=== PATIENT | female | born 1980 | race Caucasian/White ===

== ENCOUNTER 2021-10-29 15:38 | Emergency (ER) | payer OTHER, SELFPAY ==
--- NOTE | ~2021-10-29 | CT_ITS ---
EXAMINATION: CT abdomen pelvis w con EXAM DATE: 10/29/2021 17:19 INDICATION: Abdominal pain TECHNIQUE: Spiral CT of the abdomen and pelvis was performed following intravenous injection of 100 m L Omnipaque 350. Axial, coronal and sagittal images of the abdomen and pelvis were reviewed. The do se-length product (DLP) for this examination was 1541.32 mGy-cm. The exposure was tailored according to patient size (auto mA exposure control), and iterative reconstruction (ASIR) was used as addition al dose reduction technique. There is no prior study for comparison. FINDINGS: There is hepatic steatosis without suspicious focal lesion identified. Spleen, adrenal glan ds, pancreas are unremarkable. There are cholecystectomy clips. Portal and splenic veins are patent . Kidneys enhance symmetrically. There is no hydronephrosis. There is IUD which appears to be iraj trally located within the endometrium, expected position. The bladder is unremarkable. There is no retroperitoneal or pelvic lymphadenopathy. The appendix is normal. The stomach and small bowel are unremarkable. There is small duodenal divert iculum. There is expected amount of colonic stool. No free intraperitoneal gas. The heart is norm al in size. There are no pericardial or pleural effusions. The lung bases are unremarkable. There are bony degenerative changes. No osteoblastic or osteolytic lesions identified. IMPRESSION: 1. No acute intra-abdominal findings. 2. Small duodenal diverticulum. Reviewed, dictated and finalized at location G.
--- NOTE | ~2021-10-29 | US_ITS ---
EXAMINATION: US pelvic complete w TV EXAM DATE: 10/29/2021 19:23 INDICATION: Right-sided pelvic pain. Clinical concern for ovarian torsion. TECHNIQUE: Pelvic transabdominal and transvaginal sonogram was performed. There are multiple graysca le and Doppler images available for interpretation. Correlation is made to CT scan earlier same date. FINDINGS: Uterus measures 9.1 x 4.1 x 5.4 cm, with IUD centrally located inside the endometrial cavi ty. Endometrial stripe measures 5 mm, within normal limits. There are nabothian cysts. There is no free pelvic fluid. Right adnexa: The ovary measures 4.2 x 2.4 x 2.0 cm and is morphologically normal. Ovarian vascular f low confirmed. Left adnexa: The ovary measures 3.6 x 1.8 x 1.7 cm and is morphologically normal. Ovarian vascular fl ow confirmed. IMPRESSION: 1. Ovarian Doppler flow confirmed. No acute findings. 2. IUD in position. Reviewed, dictated and finalized at location G.
[2021-10-29 15:40] VITALS: BP 134/83; PULSE 94; RESP 16; TEMP 36.4; O2SAT 100
--- NOTE | 2021-10-29 15:56 | ED.ABDPAIN ---
HPI - Abdominal Pain General Chief Complaint: Abdominal Pain Stated Complaint: abdominal pain Time Seen by Provider: 10/29/21 15:41 Source: patient Mode of arrival: ambulatory Limitations: no limitations History of Present Illness HPI narrative: 40-year-old female with history of cholecystectomy comes in today with complaints of her lower quadrant pain that started about 2 hours ago. Patient currently with nausea but denies vomiting, fever, chills, diarrhea, constipation. Patient denies chance of . Currently has an IUD in. Pain rated 6 out of a 10. Related Data Allergies Allergy/AdvReac Type Severity Reaction Status Date / Time No Known Allergies Allergy Verified 10/29/21 15:43 Review of Systems Review of Systems: CONSTITUTIONAL: Denies fever, chills, or sweats. EYES: Denies visual changes, redness, or discharge. ENT: Denies rhinorrhea, congestion, sore throat, or otalgia. CARDIOVASCULAR: Denies chest pain, palpitations, or edema. RESPIRATORY: Denies cough or dyspnea. GASTROINTESTINAL: Right lower quadrant pain with nausea. Denies vomiting, or diarrhea. GENITOURINARY: Denies dysuria or hematuria. SKIN: Denies rash or itching. MUSCULOSKELETAL: Denies back pain, joint pain, or myalgia. NEUROLOGIC: Denies headache, numbness, dizziness, or weakness. PSYCHIATRIC: Denies anxiety or depression. [facility] Surgical History Surgical History (Updated 10/29/21 @ 15:58 by Shelby Lee, ARCHANA) History of cholecystectomy Exam Narrative: GENERAL: Well-appearing, well-nourished, and in no acute distress. HEAD: Normocephalic, atraumatic. EYES: PERRLA and EOMI. ENT: Nares clear, no rhinorrhea or epistaxis. Mucous membranes moist. Oropharynx without tonsillar hypertrophy exudate or other lesions. Bilateral TMs pearly barrera nonbulging NECK: Supple. No adenopathy or masses. No carotid bruits or JVD CHEST: Clear to auscultation. No respiratory distress. No wheezes rales or rhonchi HEART: Regular rate and rhythm. No murmur heard. Normal peripheral pulses. ABDOMEN: Right lower quadrant tenderness. Positive McBurney sign. Soft with normal active bowel sounds. EXTREMITIES: Normal range of motion. No edema. SKIN: Warm, dry, no rash. NEURO: No focal deficits. Alert and oriented x3. PSYCH: Normal mood and affect. Course Reevaluation(s) Reevaluation #1: All results reviewed with patient. Patient aware blood sugar 273. Patient also aware hemoglobin A1c is 11.2. Long conversation with patient had about diabetes. CT negative for acute findings. Ultrasound to rule out torsion ordered. Patient still with pain rating a 6 out of a 10 no change after morphine. Date: 10/29/21 Time: 18:09 Consultations Consultation #1: Dr. Quiroga consulted. Tyron is new diabetic. BS currently 273 with HGB A1C of 11.2. Get sugar below 250 and can discharge on Metformin 500 PO BID. He will see in the office next week. Date: 10/29/21 Time: 18:29 Vital Signs Vital signs: Vital Signs Temperature 36.4 C 10/29/21 15:40 Pulse Rate 94 10/29/21 15:40 Respiratory Rate 16 10/29/21 15:40 Blood Pressure 134/83 10/29/21 15:40 Pulse Oximetry 100 10/29/21 15:40 Temperature 36.4 C 10/29/21 15:40 Pulse Rate 86 10/29/21 20:02 Respiratory Rate 16 10/29/21 20:02 Blood Pressure 108/62 10/29/21 20:02 Pulse Oximetry 100 10/29/21 20:02 MDM - Abdominal Pain Differential Diagnosis Differential diagnosis: Likely abdominal pain, acute appendicitis, calculus of kidney and constipation Lab Data Result diagrams: 10/29/21 15:53 10/29/21 15:53 Labs: Lab Results 10/29/21 10/29/21 10/29/21 Range/Units 15:53 15:53 15:53 WBC 9.4 (4.5-10.0) K/mm3 RBC 5.45 H (4.2-5.4) M/mm3 Hgb 15.3 H (12.0-15.0) g/dL Hct 45.6 (37.0-47.0) % MCV 83.7 (80-100) fl MCH 28.1 (26-34) pg MCHC 33.6 (32-36) g/dl RDW 12.9 (11.5-14.5) % Plt Count 257 (150-375) k/mm3 MPV 10.2 (7
[2021-10-29 15:58] LABS: Basophils Percent Auto 0.3 % (0.2-1.2); Eosinophils Absolute Auto 0.1 K/mm3 (0-0.3); Eosinophils Percent Auto 1.5 % (0-4.4); Hematocrit 45.6 % (37.0-47.0); Hemoglobin 15.3 g/dL (12.0-15.0); Immature Granulocyte Absolute 0.03 K/mm3 (0.00-0.031); Immature Granulocyte Percent A 0.3 % (0-0.5); Lymphocytes Absolute Auto 3.81 K/mm3 (0.9-3.2); Lymphocytes Percent Auto 40.7 % (18.3-44.2); Mean Corpuscular HGB Conc 33.6 g/dl (32-36); Mean Corpuscular Hemoglobin 28.1 pg (26-34); Mean Corpuscular Volume 83.7 fl (80-100); Mean Platelet Volume 10.2 fl (7.4-10.4); Monocytes Absolute Auto 0.5 K/mm3 (0.1-0.6); Monocytes Percent Auto 5.4 % (2.6-8.5); Neutrophils Absolute Auto 4.8 K/mm3 (1.3-6.7); Neutrophils Percent Auto 51.8 % (45.5-73.1); Platelet Count Result 257 k/mm3 (150-375); Red Blood Count 5.45 M/mm3 (4.2-5.4); Red Cell Distribution Width 12.9 % (11.5-14.5); White Blood Count 9.4 K/mm3 (4.5-10.0)
[2021-10-29] MEDS: ONDANSETRON INJ 4 MG/2 ML VIAL IV PUSH ×2 (15:58→19:41)
[2021-10-29] MEDS: SODIUM CHLORIDE 0.9% IV 1,000 ML 999 ML IV CONT ×2 (15:58→18:59)
[2021-10-29] MEDS: MORPHINE SULFATE (*CRX) 2 MG/ML INJ IV PUSH (16:02)
[2021-10-29 16:29] LABS: Alanine Aminotransferase 42 U/L (4-35); Albumin Level 4.6 g/dL (3.5-5.1); Alkaline Phosphatase 103 U/L (38-126); Anion Gap 11 mmol/L (8-16); Aspartate Amino Transferase 40 U/L (14-36); Bilirubin,Total 0.7 mg/dL (0.2-1.3); Blood Urea Nitrogen 9 mg/dL (7-17); Calcium 8.8 mg/dL (8.4-10.2); Carbon Dioxide 23 mmol/L (22-30); Chloride 100 mmol/L (98-107); Estimated CRCL calculation 168 ml/min; Estimated Glomerular Filt Rate > 60; Glucose 273 mg/dL (65-110); Potassium 4.4 mmol/L (3.4-5.0); Sodium 134 mmol/L (137-145)
[2021-10-29 16:50] VITALS: BP 113/57; PULSE 76; RESP 19; O2SAT 98
[2021-10-29 17:27] LABS: Hemoglobin A1C 11.2 % (<5.7)
[2021-10-29 17:44] LABS: Lipase 80 U/L (23-300)
[2021-10-29 18:06] LABS: Add Urine Microscopic? YES; Appearance Urine Clear (Clear); Bilirubin Urine Negative (Negative); Blood Urine Negative (Negative); Color Urine Straw (Yellow); Glucose Urine UA 3+ mg/dL (Negative); Ketones Urine 2+ mg/dL (Negative); Leukocyte Esterase Ur Negative LEU/UL (Negative); Mucus Urine Rare /lpf; Nitrate Urine Negative (Negative); Protein Urine Negative (Negative); RBC Urine 0-2 /hpf (0-2); Squamous Epithelial Cell Urine Few /hpf (Few); Urobilinogen Urine Negative mg/dL (<2.0); WBC Urine 0-3 /hpf
[2021-10-29 18:13] LABS: Specific Grav Ur 1.056 (1.001-1.035)
[2021-10-29 18:31] LABS: Glucose Point of Care 251 mg/dl (65-105)
[2021-10-29] MEDS: fentaNYL CITRATE INJ (*CRX) 100 MCG/2 ML VIAL 50 MCG IV PUSH (18:58)
[2021-10-29] MEDS: INSULIN HUMAN REGULAR (*BKC) 100 UNITS/ML IV PUSH (18:59)
--- NOTE | 2021-10-29 19:04 | PC.NURSE ---
Pt to ultrasound
[2021-10-29 19:23] VITALS: O2SAT 97
[2021-10-29 19:26] LABS: Glucose Point of Care 202 mg/dl (65-105)
[2021-10-29 19:30] VITALS: O2SAT 97
--- NOTE | 2021-10-29 19:33 | PC.NURSE ---
CÉSAR Quarles made aware of pts BS of 202. Pt c/o nausea. Made aware see MAR
[2021-10-29 19:45] VITALS: O2SAT 98
[2021-10-29 20:02] VITALS: BP 108/62; PULSE 86; RESP 16; O2SAT 100
== END 2021-10-29 20:20 | disposition home or self-care (01) ==
PROVIDERS: Emergency Provider Nurse Practitioner Family
DX: E11.65 Type 2 diabetes mellitus with hyperglycemia (principal); K76.0 Fatty (change of) liver, not elsewhere classified; Z97.5 Presence of (intrauterine) contraceptive device
CPT/HCPCS: 36415; 74177; 76830; 76856; 80053; 81001; 81025; 82948; 83036; 83690; 85025; 96361; 96374; 96375; 96376; 99284; J1815; J2270; J2405; J3010; J7030; Q9967

== ENCOUNTER 2022-09-04 15:07 | Emergency (ER) | payer OTHER, SELFPAY ==
[2022-09-04 15:12] VITALS: BP 113/67; PULSE 105; RESP 16; TEMP 36.1; O2SAT 98
--- NOTE | 2022-09-04 15:20 | ED.URI ---
HPI - URI/Sore Throat General Chief Complaint: Upper Respiratory Infection Stated Complaint: sore throat/cough/sob/chest congestion Time Seen by Provider: 09/04/22 15:22 Source: patient, RN notes reviewed and old records reviewed Mode of arrival: ambulatory Limitations: no limitations History of Present Illness HPI Narrative: 41-year-old female presents to the [facility] with complaints of a sore throat, cough, chest congestion and sinus congestion for 3 days. Has tried multiple [id number] products with minimal relief. Onset (ago): day(s) (3) Related Data Home Medications Medication Instructions Recorded Confirmed buspirone 15 mg tablet 15 mg PO DAILY 09/04/22 09/04/22 dulaglutide 0.75 mg/0.5 mL 0.75 mg subcut WEEKLY 09/04/22 09/04/22 subcutaneous pen injector (Trulicity) glimepiride 1 mg tablet (Amaryl) 1 mg PO DAILY 09/04/22 09/04/22 metformin 1,000 mg tablet 1,000 mg PO BID 09/04/22 09/04/22 simvastatin 10 mg tablet 10 mg PO DAILY 09/04/22 09/04/22 Allergies Allergy/AdvReac Type Severity Reaction Status Date / Time No Known Allergies Allergy Verified 09/04/22 15:12 Review of Systems Review of Systems: All systems reviewed & are unremarkable except as noted in HPI and below Constitutional: Constitutional: Reports no additional constitutional complaints Eyes: Eyes: Reports no additional eye complaints ENT: Reports as per HPI, Reports nasal congestion and Reports sore throat Cardiovascular: Cardiovascular: Reports no additional cardiovascular complaints, Denies chest pain and Denies dyspnea Respiratory: Respiratory: Reports no additional respiratory complaints, Denies chest congestion, Denies cough and Denies dyspnea Gastrointestinal: Gastrointestinal: Reports no additional gastrointestinal complaints, Denies abdominal pain, Denies nausea and Denies vomiting Musculoskeletal: Musculoskeletal: Reports no additional musculoskeletal complaints Integumentary/Breasts: Skin/Breast: Reports system reviewed and no additional complaints, except as docu Neurologic: Reports system reviewed and no additional complaints, except as documented Psychiatric: Psychiatric: Reports no additional psychiatric complaints Allergic/Immunologic: Allergic/Immunologic: Reports no additional allergic/immunologic complaints PMFSH Surgical History Surgical History History of cholecystectomy Comments At the time of my signature, I reviewed and agree with the nursing past medical, surgical, social, and family history. There is no relevant family history pertinent to the patient complaint. Exam Const: General: cooperative, healthy appearing, comfortable, no acute distress, well developed, alert and well nourished Nutritional Appearance: well nourished Orientation/consciousness: patient oriented x3 Limitations: no limitations HENMT: Head: normal to inspection Ears: hearing grossly normal bilaterally and external ears normal Face/Nose/Sinus: Normal external nose present, Normal nares present, Normal nasal mucous membranes and turbinates present and normal facial exam Face and sinus: normal facial exam Mouth: Yes Normal oral and palatal mucosa present, Yes lip normal and Yes moist mucous membranes Throat: posterior oropharynx normal and uvula midline Eyes: General: appearance normal, both eyes and all related structures Alignment and Position: alignment normal Periorbital: periorbital findings normal Conjunctivae: conjunctivae normal Pupils: Equal, round and reactive pupils present EOM: EOMs intact bilaterally Neck: Neck: normal visual inspection, full ROM, no lymphadenopathy and no meningeal signs Chest: Chest palpation & inspection: normal inspection of the chest Resp: Effort & Inspection: normal respiratory effort and able to speak in complete sentences Auscultation: clear to auscultation bilaterally, no crackles, no rales, no rhonchi and no wheezes Cardio: R
== END 2022-09-04 15:49 | disposition home or self-care (01) ==
PROVIDERS: Emergency Provider Nurse Practitioner; PCP Nurse Practitioner
DX: J02.0 Streptococcal pharyngitis (principal)
CPT/HCPCS: 87880; 99213; G0463

== ENCOUNTER 2022-09-22 11:38 | Emergency (ER) | payer OTHER, SELFPAY ==
[2022-09-22 11:40] VITALS: BP 132/73; PULSE 68; RESP 18; TEMP 36.5; O2SAT 100
--- NOTE | 2022-09-22 12:26 | ED.URI ---
HPI - URI/Sore Throat General Chief Complaint: Upper Respiratory Infection Stated Complaint: sore throat Time Seen by Provider: 09/22/22 12:16 Source: patient Mode of arrival: ambulatory Limitations: no limitations History of Present Illness HPI Narrative: Patient presents today complaining of a sore throat since yesterday. She was diagnosed with strep throat and finished a course of antibiotics a week ago. She currently rates her pain 5/10 and has been taking ibuprofen without relief. History of diabetes. Denies history of shortness of breath or difficulty swallowing. Related Data Home Medications Medication Instructions Recorded Confirmed buspirone 15 mg tablet 15 mg PO DAILY 09/04/22 09/22/22 dulaglutide 0.75 mg/0.5 mL 0.75 mg subcut WEEKLY 09/04/22 09/22/22 subcutaneous pen injector (Trulicity) glimepiride 1 mg tablet (Amaryl) 1 mg PO DAILY 09/04/22 09/22/22 metformin 1,000 mg tablet 1,000 mg PO BID 09/04/22 09/22/22 simvastatin 10 mg tablet 10 mg PO DAILY 09/04/22 09/22/22 Allergies Allergy/AdvReac Type Severity Reaction Status Date / Time No Known Allergies Allergy Verified 09/22/22 11:43 Review of Systems Review of Systems: CONSTITUTIONAL: Denies body aches, fever, chills, or sweats. EYES: Denies visual changes, redness, or discharge. ENT: Denies rhinorrhea, congestion, or otalgia.+ sore throat CARDIOVASCULAR: Denies chest pain, palpitations, or edema. RESPIRATORY: Denies cough or dyspnea. GASTROINTESTINAL: Denies abdominal pain, nausea, vomiting, or diarrhea. GENITOURINARY: Denies dysuria or hematuria. SKIN: Denies rash, itching, or wounds. MUSCULOSKELETAL: Denies back pain, joint pain, or myalgia. NEUROLOGIC: Denies headache, numbness, tingling, or weakness. PSYCH: Denies depression or anxiety. [facility] Past Medical History Medical History (Updated 09/22/22 @ 12:30 by Cecily Ann, RYAN, BC) Diabetes Surgical History Surgical History History of cholecystectomy Comments At time of signature, I have reviewed and agree with nursing past medical, surgical, social and family history unless otherwise noted. Please see nursing chart for further information. There is no relevant family history pertinent to the presenting complaint Exam Narrative: GENERAL: Well-appearing, well-nourished, and in no acute distress. HEAD: Normocephalic, atraumatic. EYES: EOMI. No redness or drainage. Conjunctivae normal. ENT: Mucous membranes pink and moist. Nares clear. No rhinorrhea. TMs normal bilaterally. Throat mildly erythematous without edema or exudate. Uvula midline. NECK: Normal AROM. Supple. No lymphadenopathy. CHEST: No respiratory distress. Clear to auscultation. HEART: Regular rate and rhythm. No murmur appreciated. Normal peripheral pulses. EXTREMITIES: Normal range of motion. No edema. SKIN: Warm, dry, no rash. Capillary refill normal. Normal skin turgor. NEURO: No focal deficits. Alert and oriented x3. Gait steady. PSYCH: Normal affect. No signs of depression or anxiety. Course Course Level of Care: Express Care Visit Vital Signs Vital signs: Vital Signs Temperature 97.7 F 09/22/22 11:40 Pulse Rate 68 09/22/22 11:40 Respiratory Rate 18 09/22/22 11:40 Blood Pressure 132/73 09/22/22 11:40 Pulse Oximetry 100 09/22/22 11:40 Oxygen Delivery Room Air 09/22/22 11:40 Temperature 97.7 F 09/22/22 11:40 Pulse Rate 68 09/22/22 11:40 Respiratory Rate 18 09/22/22 11:40 Blood Pressure 132/73 09/22/22 11:40 Pulse Oximetry 100 09/22/22 11:40 Oxygen Delivery Room Air 09/22/22 11:40 Reviewed. Pt has been instructed to follow up with her PCP regarding her elevated blood pressure today. MDM - URI/Sore Throat MDM Narrative Medical decision making narrative: Tests are all negative. Symptoms likely viral. Anticipatory guidance given. No prescriptions indicated at this time. Different
== END 2022-09-22 12:40 | disposition home or self-care (01) ==
PROVIDERS: Emergency Provider Nurse Practitioner
DX: J02.9 Acute pharyngitis, unspecified (principal); Z20.822 Contact with and (suspected) exposure to COVID-19; E11.9 Type 2 diabetes mellitus without complications; Z79.84 Long term (current) use of oral hypoglycemic drugs
CPT/HCPCS: 87081; 87426; 87804; 87880; 99213; C9803; G0463

== ENCOUNTER 2023-08-26 15:04 | Emergency (ER) | payer OTHER, SELFPAY ==
--- NOTE | 2023-08-26 15:11 | ED.URI ---
HPI - URI/Sore Throat General Chief Complaint: Upper Respiratory Infection Stated Complaint: sorethroat,rt ear pain Time Seen by Provider: 08/26/23 15:11 Source: patient Mode of arrival: ambulatory Limitations: no limitations History of Present Illness HPI Narrative: Patient is a 42-year-old female who presents with right ear pain and sore throat that started today. If patient has not taken anything for symptoms. Patient denies any fever, chills, congestion, cough, nausea, vomiting, diarrhea. Reports son had strep throat last week. Related Data Home Medications Medication Instructions Recorded Confirmed buspirone 15 mg tablet 15 mg PO DAILY 09/04/22 08/26/23 dulaglutide 0.75 mg/0.5 mL 0.75 mg subcut WEEKLY 09/04/22 08/26/23 subcutaneous pen injector (Trulicity) glimepiride 1 mg tablet (Amaryl) 1 mg PO DAILY 09/04/22 08/26/23 metformin 1,000 mg tablet 1,000 mg PO BID 09/04/22 08/26/23 simvastatin 10 mg tablet 10 mg PO DAILY 09/04/22 08/26/23 cholecalciferol (vitamin D3) 25 25 mcg PO DAILY 08/26/23 08/26/23 mcg (1,000 unit) tablet levonorgestrel 21 mcg/24 hours (8 1 device intrauterine ONCE 08/26/23 08/26/23 yrs) 52 mg intrauterine device (Mirena) multivitamin with minerals-folic 1 tablet PO DIRECTED 08/26/23 08/26/23 acid 0.4 mg tablet Allergies Allergy/AdvReac Type Severity Reaction Status Date / Time No Known Allergies Allergy Verified 08/26/23 15:14 Review of Systems Review of Systems: All systems reviewed & are unremarkable except as noted in HPI and below Constitutional: Constitutional: Denies body ache(s), Denies chills, Denies fatigue, Denies fever(s), Denies headache(s), Denies malaise and Denies weakness Eyes: Eyes: Denies blurry vision, Denies itchy eyes and Denies loss of vision ENT: Reports otalgia, Denies headache(s), Denies nasal congestion, Denies sinus pain and Reports sore throat Cardiovascular: Cardiovascular: Denies chest pain, Denies irregular heart rhythm and Denies dyspnea Respiratory: Respiratory: Reports cough and Denies dyspnea Gastrointestinal: Gastrointestinal: Denies abdominal pain, Denies diarrhea, Denies nausea and Denies vomiting Musculoskeletal: Musculoskeletal: Denies back pain, Denies myalgias and Denies arthralgias Integumentary/Breasts: Skin/Breast: Denies pruritus and Denies rash Neurologic: Denies headache(s), Denies loss of vision and Denies weakness Psychiatric: Psychiatric: Reports no additional psychiatric complaints Endocrine: Endocrine: Denies fatigue Allergic/Immunologic: Allergic/Immunologic: Denies itchy eyes PMFSH Past Medical History Medical History Diabetes Surgical History Surgical History History of cholecystectomy Comments At time of signature, agree with nursing past medical, surgical, social and family history. There is no relevant family history pertinent to the presenting complaint. Exam Const: General: cooperative, healthy appearing, comfortable, no acute distress and well nourished Nutritional Appearance: well nourished Orientation/consciousness: patient oriented x3 Limitations: no limitations HENMT: Head: normal to inspection, normocephalic and atraumatic Ears: hearing grossly normal bilaterally, external ears normal, TM normal on the left, EAC's normal, no periauricular adenopathy and TM abnormal wth effusion serous on the right Face/Nose/Sinus: Normal external nose present, Normal nasal mucous membranes and turbinates present, normal facial exam, sinuses nontender and face symmetric Face and sinus: normal facial exam, sinuses nontender and face symmetric Mouth: Yes Normal oral and palatal mucosa present, Yes lip normal, Yes tongue normal, Yes Normal salivary glands and ducts present, Yes oropharynx normal and Yes moist mucous membranes Teeth and gingiva: dentition normal Throat: tonsils normal, uvula mi
[2023-08-26 15:14] VITALS: BP 109/65; PULSE 82; RESP 18; TEMP 36.4; O2SAT 98
[2023-08-26 15:15] VITALS: BP 109/65; PULSE 82; RESP 18; TEMP 36.4; O2SAT 98
== END 2023-08-26 15:33 | disposition home or self-care (01) ==
PROVIDERS: Emergency Provider Nurse Practitioner Family; PCP Nurse Practitioner
DX: H65.01 Acute serous otitis media, right ear (principal); J02.9 Acute pharyngitis, unspecified; E11.9 Type 2 diabetes mellitus without complications
CPT/HCPCS: 87081; 87880; 99213; G0463

== ENCOUNTER 2024-01-09 08:03 | Emergency (ER) | payer OTHER, SELFPAY ==
--- NOTE | 2024-01-09 08:22 | ED.URI ---
HPI - URI/Sore Throat General Chief Complaint: Upper Respiratory Infection Stated Complaint: sorethroat,cough,bilateral ear pain Time Seen by Provider: 01/09/24 08:22 Source: patient Mode of arrival: ambulatory Limitations: no limitations History of Present Illness HPI Narrative: Patient is a 43-year-old female who presents with 3 days of sore throat cough and ear fullness. Patient has not taken anything for symptoms. Patient denies any fever, chills, nausea, vomiting, diarrhea. Son has similar symptoms. Related Data Home Medications Medication Instructions Recorded Confirmed buspirone 15 mg tablet 15 mg PO DAILY 09/04/22 01/09/24 cholecalciferol (vitamin D3) 25 25 mcg PO DAILY 08/26/23 01/09/24 mcg (1,000 unit) tablet levonorgestrel 21 mcg/24 hr (up to 1 device intrauterine ONCE 08/26/23 01/09/24 8 years) 52 mg intrauterine device (Mirena) multivitamin with minerals-folic 1 tablet PO DIRECTED 08/26/23 01/09/24 acid 0.4 mg tablet Allergies Allergy/AdvReac Type Severity Reaction Status Date / Time No Known Allergies Allergy Verified 01/09/24 08:26 Review of Systems Review of Systems: All systems reviewed & are unremarkable except as noted in HPI and below Constitutional: Constitutional: Denies body ache(s), Denies chills, Denies fatigue, Denies fever(s), Denies headache(s), Denies malaise and Denies weakness Eyes: Eyes: Denies blurry vision, Denies itchy eyes and Denies loss of vision ENT: Reports otalgia, Denies headache(s), Reports nasal congestion, Denies sinus pain and Reports sore throat Cardiovascular: Cardiovascular: Denies chest pain, Denies irregular heart rhythm and Denies dyspnea Respiratory: Respiratory: Reports cough and Denies dyspnea Gastrointestinal: Gastrointestinal: Denies abdominal pain, Denies diarrhea, Denies nausea and Denies vomiting Musculoskeletal: Musculoskeletal: Denies back pain, Denies myalgias and Denies arthralgias Integumentary/Breasts: Skin/Breast: Denies pruritus and Denies rash Neurologic: Denies headache(s), Denies loss of vision and Denies weakness Psychiatric: Psychiatric: Reports no additional psychiatric complaints Endocrine: Endocrine: Denies fatigue Allergic/Immunologic: Allergic/Immunologic: Denies itchy eyes PMFSH Past Medical History Medical History Diabetes Surgical History Surgical History History of cholecystectomy Comments At time of signature, agree with nursing past medical, surgical, social and family history. There is no relevant family history pertinent to the presenting complaint. Exam Const: General: cooperative, healthy appearing, comfortable, no acute distress and well nourished Nutritional Appearance: well nourished Orientation/consciousness: patient oriented x3 Limitations: no limitations HENMT: Head: normal to inspection, normocephalic and atraumatic Ears: hearing grossly normal bilaterally, external ears normal, TM's normal bilaterally, EAC's normal and no periauricular adenopathy Face/Nose/Sinus: Normal external nose present, Abnormal mucous membranes and turbinates present erythematous bilateral and diffuse, normal facial exam, sinuses nontender and face symmetric Face and sinus: normal facial exam, sinuses nontender and face symmetric Mouth: Yes Normal oral and palatal mucosa present, Yes lip normal, Yes tongue normal, Yes Normal salivary glands and ducts present, Yes oropharynx normal and Yes moist mucous membranes Teeth and gingiva: dentition normal Throat: posterior oropharynx normal, tonsils normal and uvula midline Eyes: General: appearance normal, both eyes and all related structures Alignment and Position: alignment normal and position normal Periorbital: periorbital findings normal Eyelids: eyelids normal Pupils: Equal, round and reactive pupils present Neck: Neck: normal visual inspection, f
[2024-01-09 08:46] VITALS: BP 101/61; PULSE 71; RESP 16; TEMP 35.9; O2SAT 98
== END 2024-01-09 09:16 | disposition home or self-care (01) ==
PROVIDERS: Emergency Provider Nurse Practitioner Family; PCP Nurse Practitioner
DX: J06.9 Acute upper respiratory infection, unspecified (principal); E11.9 Type 2 diabetes mellitus without complications
CPT/HCPCS: 87081; 87880; 99213; G0463

== ENCOUNTER 2024-02-06 12:46 | Emergency (ER) | payer OTHER, SELFPAY ==
[2024-02-06 13:00] VITALS: BP 96/58; PULSE 71; RESP 18; TEMP 36.5; O2SAT 98
--- NOTE | 2024-02-06 13:35 | ED.EYEPROB ---
HPI - Eye Problem General Chief complaint: Eye Problems Stated complaint: Eye Infection Time Seen by Provider: 02/06/24 13:14 Source: patient, family, RN notes reviewed and old records reviewed Mode of arrival: ambulatory Limitations: no limitations History of Present Illness HPI Narrative: 43 year old female presents to express care with complaints of right eye redness since Sunday with drainage and feelings of irritation. Patient reports that initially she had some irritation under her right eye lid and some mild swelling and she called her eye doctor and was told to apply warm compresses which she did. Since then she has been having crusting and has noted some mucoid drainage from her right eye. chief complaint: eye redness and other (mucoid drainage) Onset (ago): day(s) (2) Onset description: gradual Duration: progressively worsening Location: right eye Eye Symptoms: redness and discharge Severity: mild Treatments Prior to Arrival: other (warm compresses to right eye) Related Data Home Medications Medication Instructions Recorded Confirmed buspirone 15 mg tablet 15 mg PO DAILY 09/04/22 02/06/24 cholecalciferol (vitamin D3) 25 25 mcg PO DAILY 08/26/23 02/06/24 mcg (1,000 unit) tablet levonorgestrel 21 mcg/24 hr (up to 1 device intrauterine ONCE 08/26/23 02/06/24 8 years) 52 mg intrauterine device (Mirena) multivitamin with minerals-folic 1 tablet PO DIRECTED 08/26/23 02/06/24 acid 0.4 mg tablet Allergies Allergy/AdvReac Type Severity Reaction Status Date / Time No Known Allergies Allergy Verified 02/06/24 13:10 Review of Systems Review of Systems: CONSTITUTIONAL: Denies fever, chills, or sweats. EYES: Denies visual changes. Reports redness,, irritation, discharge to right eye. ENT: Denies rhinorrhea, congestion, sore throat, or otalgia. CARDIOVASCULAR: Denies chest pain, palpitations, or edema. RESPIRATORY: Denies cough or dyspnea. SKIN: Denies rash or itching. NEUROLOGIC: Denies headache All systems reviewed & are unremarkable except as noted in HPI and below PMFSH Past Medical History Medical History (Updated 02/07/24 @ 16:28 by Simona Trujillo NP) Anxiety and depression Bronchitis Diabetes GERD (gastroesophageal reflux disease) History of sinus problem Hyperlipidemia Surgical History Surgical History H/O gastric sleeve History of cholecystectomy Social History Social History (Updated 02/07/24 @ 16:23 by Simona Trujillo NP) Smoking status: Never smoker Alcohol intake: current Alcohol use details: rare social Substance use type: does not use Living arrangements: with family Gender identity (if verbalized by the patient): Female Comments At time of signature, agree with nursing past medical, surgical, social and family history. There is no relevant family history pertinent to the presenting complaint Exam Narrative: GENERAL: Well-appearing, well-nourished, and in no acute distress. HEAD: Normocephalic, atraumatic. EYES: PERRLA and EOMI. Upper and lower eyelids unremarkable. No periorbital cellulitis noted. Sclera and conjunctivae injected right eye with mucoid drainage ENT: Nares clear, no rhinorrhea or epistaxis. Mucous membranes moist. NECK: Supple. no lymphadenopathy CHEST: Clear to auscultation. No respiratory distress.SAO2 98% on room air HEART: Regular rate and rhythm. No murmur heard. Normal peripheral pulses. SKIN: Warm, dry, no rash. NEURO: No focal deficits. Alert and oriented x3. Course Course Emergency Course: Patient is aware of diagnosis, understands and agrees to treatment plan. Anticipatory guidance given. Patient agrees to follow-up as directed and is aware of reasons to seek care at the emergency department. Portions of this record may have been created with voice recognition software Level of Care: Express Care Visit Vital Signs Vital signs: Vital Signs Te
== END 2024-02-06 13:54 | disposition home or self-care (01) ==
PROVIDERS: Emergency Provider Registered Nurse; PCP Nurse Practitioner
DX: H10.9 Unspecified conjunctivitis (principal); E11.9 Type 2 diabetes mellitus without complications; K21.9 Gastro-esophageal reflux disease without esophagitis; E78.5 Hyperlipidemia, unspecified; Z98.84 Bariatric surgery status; F41.9 Anxiety disorder, unspecified; F32.A Depression, unspecified
CPT/HCPCS: 99213; G0463

== ENCOUNTER 2024-07-11 09:07 | Emergency (ER) | payer OTHER, SELFPAY ==
[2024-07-11 09:17] VITALS: BP 116/77; PULSE 79; RESP 20; TEMP 36.2; O2SAT 100
--- NOTE | 2024-07-11 09:53 | ED.URI ---
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 She reports that symptoms began yesterday, got much worse today. She denies any sore throat. Says she has not needed to take anything for her symptoms. She denies any runny nose. Denies fever, chills, sweats. Denies any injury or trauma. Voices no other concerns or complaints at this time. Related Data Home Medications Medication Instructions Recorded Confirmed buspirone 15 mg tablet 15 mg PO DAILY 09/04/22 07/11/24 cholecalciferol (vitamin D3) 25 25 mcg PO DAILY 08/26/23 07/11/24 mcg (1,000 unit) tablet levonorgestrel 21 mcg/24 hr (up to 1 device intrauterine ONCE 08/26/23 07/11/24 8 years) 52 mg intrauterine device (Mirena) multivitamin with minerals-folic 1 tablet PO DIRECTED 08/26/23 07/11/24 acid 0.4 mg tablet Allergies Allergy/AdvReac Type Severity Reaction Status Date / Time No Known Allergies Allergy Verified 07/11/24 09:16 Review of Systems Review of Systems: All systems reviewed & are unremarkable except as noted in HPI and below Constitutional: Constitutional: Reports no additional constitutional complaints ENT: Reports system reviewed and no additional complaints, except as documented, Reports as per HPI and Reports hoarseness Cardiovascular: Cardiovascular: Reports no additional cardiovascular complaints Respiratory: Respiratory: Reports no additional respiratory complaints Gastrointestinal: Gastrointestinal: Reports no additional gastrointestinal complaints [facility] Past Medical History Medical History (Updated 07/11/24 @ 10:22 by Ronda Orellana APRN) Anxiety and depression Bronchitis Diabetes GERD (gastroesophageal reflux disease) History of sinus problem Hyperlipidemia Surgical History Surgical History H/O gastric sleeve History of cholecystectomy Social History Social History Smoking status: Never smoker Alcohol intake: current Alcohol use details: rare social Substance use type: does not use Living arrangements: with family Gender identity (if verbalized by the patient): Female Comments At the time of my signature, I reviewed and agree with the nursing past medical, surgical, social, and family history. There is no relevant family history pertinent to the patient complaint. Exam Const: General: cooperative, no acute distress, alert and awake Orientation/consciousness: oriented to person, oriented to place and oriented to time HENMT: Head: normal to inspection Ears: TM's normal bilaterally Mouth: Yes moist mucous membranes Throat: posterior oropharynx normal Resp: Effort & Inspection: normal respiratory effort and able to speak in complete sentences Auscultation: clear to auscultation bilaterally, no crackles, no rales, no rhonchi and no wheezes Cardio: Palpation: normal PMI Rate: regular rate Rhythm: regular rhythm Heart sounds: S1 normal heart sound present and S2 normal heart sound present Neuro: General: oriented to person, oriented to place and oriented to time Cranial nerves: Yes CN's II-XII intact bilaterally Psych: Appearance: grossly normal Thought process: Normal thought process present Insight: Good insight present (Psych) Judgement: Good judgement present (Psych) Course Course Level of Care: Express Care Visit Vital Signs Vital signs: Vital Signs Temperature 97.2 F L 07/11/24 09:17 Pulse Rate 79 07/11/24 09:17 Respiratory Rate 20 07/11/24 09:17 Blood Pressure 116/77 07/11/24 09:17 Pulse Oximetry 100 07/11/24 09:17 Oxygen Delivery Room Air 07/11/24 09:17 Temperature 97.2 F L 07/11/24 09:17 Pulse Rate 79 07/11/24 09:17 Respiratory Rate 20 07/11/24 09:17 Blood Pressure 116/77 07/11/24 09:17 Pulse Oximetry 100 07/11/24 09:17 Oxygen Delivery Room Air 07/11/24 09:17 Reviewed MDM - URI/Sore Throat MDM Narrative Medical decision making narrative: Patient in no distress, history and exam consistent with laryngitis. Treat with steroid burst. Follow with primary care provider. Emergency department for new or worse symptoms. Discharge instructions reviewed with patient, as well as provided in writing per nursing staff. The instructions also include specific and strict return/GO TO THE ER as well as f/u information. All questions have been answered, and the patient deny any further questions with discharge and discharge plan. Some parts of this dictation were generated by voice recognition software and may contain typographical and/or grammatical inaccuracies. Differential Diagnosis Differential diagnosis: Likely upper respiratory infection, croup and viral infection Medical Records Attestation: I reviewed the patient's medical records. Discharge Plan Discharge Clinical Impression: Laryngitis Patient Disposition: Home, Self-Care Condition: Stable Instructions: Antibiotic Form, Upper Respiratory Infection (ED) Additional Instructions: Take medications as prescribed. Follow with primary care provider. Emergency department for new or worsening symptoms Patient Language: Malaysian Prescriptions: New prednisone 50 mg tablet 50 mg PO DAILY Qty: 5 0RF No Action Mirena 21 mcg/24 hours (8 yrs) 52 mg Intrauterine Device 1 device INTRAUTERINE ONCE Rx Instructions: as a single dose cholecalciferol (vitamin D3) 25 mcg (1,000 unit) Tablet 25 mcg PO DAILY multivit with min-folic acid [Adult One Daily Multivitamin] 0.4 mg Tablet 1 tablet PO DIRECTED buspirone 15 mg tablet 15 mg PO DAILY Follow-up/Referrals: Marilu,ARCHANA Daniel [Primary Care Provider] - 2 Weeks Stand Alone Forms: Work/School Release IP Time of Disposition: 10:22
[2024-07-11 10:27] LABS: EDSTREPNEGPOS1 Negative (Negative)
== END 2024-07-11 10:25 | disposition home or self-care (01) ==
PROVIDERS: Emergency Provider Nurse Practitioner Family; PCP Nurse Practitioner
DX: J04.0 Acute laryngitis (principal); E11.9 Type 2 diabetes mellitus without complications; E78.5 Hyperlipidemia, unspecified; K21.9 Gastro-esophageal reflux disease without esophagitis; Z98.84 Bariatric surgery status; F41.9 Anxiety disorder, unspecified; F32.A Depression, unspecified
CPT/HCPCS: 87081; 87880; 99213; G0463

== ENCOUNTER 2024-12-04 08:12 | Emergency (ER) | payer OTHER, SELFPAY ==
[2024-12-04 08:28] VITALS: BP 112/76; PULSE 100; RESP 18; TEMP 36.2; O2SAT 100
--- NOTE | 2024-12-04 08:46 | ED_ITS ---
HPI - URI/Sore Throat General Chief Complaint: Upper Respiratory Infection Stated Complaint: Sore Throat Time Seen by Provider: 12/04/24 08:15 Source: patient Mode of arrival: ambulatory Limitations: no limitations History of Present Illness HPI Narrative: Patient is a 44 year old female that presents with one week of n/v/d. States she had a fever 4 days ago that has since resolved. Was feeling better yesterday but then in the evening her throat started hurting, lymphnodes became swollen and tender. Patient denies any other URI symptoms including congestion, ear pain, cough. Has not taken anything for symptoms. Patient thought she had the FLU but became concerned with the lymphnode swelling. Related Data Home Medications ?Medication ?Instructions ?Recorded ?Confirmed ?Last Taken ?Type buspirone 15 mg tablet 15 mg PO DAILY 09/04/22 07/11/24 Unknown History cholecalciferol (vitamin D3) 25 25 mcg PO DAILY 08/26/23 07/11/24 Unknown His tory mcg (1,000 unit) tablet levonorgestrel (Mirena) 1 device intrauterine ONCE 08/26/23 07/11/24 Unknown History multivitamin with minerals-folic 1 tablet PO DIRECTED 08/26/23 07/11/24 U nknown History acid 0.4 mg tablet Allergies Allergy/AdvReac Type Severity Reaction Status Date / Time No Known Allergies Allergy Verified 12/04/24 08:33 Review of Systems Review of Systems: All systems reviewed & are unremarkable except as noted in HPI and below Constitutional: Constitutional: Denies chills, Denies fatigue, Denies fever(s), Denies headache(s), Denies malaise and Denies weakness Eyes: Eyes: Denies blurry vision, Denies itchy eyes and Denies loss of vision ENT: Denies otalgia, Denies headache(s), Denies nasal congestion, Reports neck pain (lymphnodes), Denies sinus pain and Reports sore throat Cardiovascular: Cardiovascular: Denies chest pain, Denies irregular heart rhythm and Denies dyspnea Respiratory: Respiratory: Denies cough and Denies dyspnea Gastrointestinal: Gastrointestinal: Denies abdominal pain, Reports diarrhea, Reports nausea and Reports vomiting Musculoskeletal: Musculoskeletal: Denies back pain, Denies myalgias and Denies arthralgias Integumentary/Breasts: Skin/Breast: Denies pruritus and Denies rash Neurologic: Denies headache(s), Denies loss of vision and Denies weakness Psychiatric: Psychiatric: Reports no additional psychiatric complaints Endocrine: Endocrine: Denies fatigue Allergic/Immunologic: Allergic/Immunologic: Denies itchy eyes PMFSH Past Medical History Medical History History of sinus problem GERD (gastroesophageal reflux disease) Bronchitis Hyperlipidemia Anxiety and depression Diabetes Surgical History Surgical History H/O gastric sleeve History of cholecystectomy Social History Social History Smoking status: Never smoker Alcohol intake: current Alcohol use details: rare social Substance use type: does not use Living arrangements: with family Gender identity (if verbalized by the patient): Female Comments At time of signature, agree with nursing past medical, surgical, social and family history. There is no relevant family history pertinent to the presenting complaint. Exam Const: General: cooperative, healthy appearing, comfortable, no acute distress and well nourished Nutritional Appearance: well nourished Orientation/co nsciousness: patient oriented x3 Limitations: no limitations HENMT: Head: normal to inspection, normocephalic and atraumatic Ears: hearing grossly normal bilaterally, external ears normal, TM's normal bilaterally, EAC's normal and no periauricular adenopathy Face/Nose/Sinus: Normal external nose present, Abnormal mucous membranes and turbinates present erythematous bilateral and diffuse, normal facial exam, sinuses nontender and face symmetric Face and sinus: normal facial exam, sinuses nontender and face symmetric Mouth: Yes Normal oral and palatal mucosa present, Yes lip normal, Yes tongue normal, Yes Normal salivary glands and ducts present, Yes oropharynx normal and Yes moist mucous membranes Teeth and gingiva: dentition normal Throat: posterior oropharynx normal, uvula midline and abnormal tonsil bilateral erythema and hypertrophy 2+ Eyes: General: appearance normal, both eyes and all related structures Alignment and Position: alignment normal and position normal Periorbital: periorbital findings normal Eyelids: eyelids normal Pupils: Equal, round and reactive pupils present Neck: Neck: normal visual inspection, full ROM, supple and lymphadenopathy bilateral submandibular hard, fixed and tender Chest: Chest palpation & inspection: normal inspection of the chest and normal palpation of entire chest wall Resp: Effort & Inspection: normal respiratory effort and able to speak in complete sentences Auscultation: clear to auscultation bilaterally, no crackles, no rales, no rhonchi and no wheezes Cardio: Rate: regular rate Rhythm: regular rhythm Heart sounds: S1 normal heart sound present and S2 normal heart sound present GI: Inspection: normal to inspection Skin: General skin exam: normal color and no rashes or lesions noted Neuro: General: patient oriented x3 and moves all extremities Cranial nerves: Yes Equal, round and reactive pupils present Speech: normal speech Gait exam (Neuro): Normal gait present Extrem: General: normal to inspection, full ROM and no edema Psych: Appearance: grossly normal and well kempt Mental Status: mental status grossly normal Speech and movement: Normal speech and movement present Affect: normal affect Attitude: cooperative Thought process: Normal thought process present Course Course Emergency Course: Discharge instructions reviewed with patient, as well as provided in writing per nursing staff. The instructions also include specific and strict return/GO TO THE ER as well as f/u information. All questions have been answered, and the patient deny any further questions with discharge and discharge plan. Portions of this record may have been created with voice recognition software Level of Care: Express Care Visit Vital Signs Vital signs: Reviewed MDM - URI/Sore Throat MDM Narrative Medical decision making narrative: Discussed taking OTC Imodium for continued diarrhea. Discussed alternating tylenol and ibuprofen and using warm compresses on lymphnodes for pain. Pt well hydrated appearing, in no respiratory distress, hemodynamically stable. Recommend supportive care. The patient is stable at time of discharge the clinical impression was discussed and the patient was given the opportunity to ask questions, which were addressed as completely as possible given the information available at present. Anticipatory guidance and return to care precautions were discussed and the importance of primary care follow-up was stressed and encouraged. The patient voiced understanding of the plan, indications to return, and the need for follow-up. Exam findings show no acute concerns or changes Patient is appropriate for outpatient treatment and follow-up. Differential diagnosis considered: Bobo virus, strep pharyngitis, tonsillitis, allergic rhinitis, upper respiratory tract infection, sinusitis, rhinosinusitis, nasopharyngitis. viral pharyngitis, otitis media, otitis externa, otitis effusion, foreign body, cerumen impaction, viral syndrome, and influenza.? Medical Records Attestation: I reviewed the patient's medical records. Discharge Plan Discharge Clinical Impression: Acute bacterial tonsillitis Patient Disposition: Home Condition: Stable Instructions: Tonsillitis (ED) Additional Instructions: After 24 hours on antibiotics throw tooth brush away and start using a new one. Wash your sheets and cup/water bottle that is used daily. Do not share drinks. Take Motrin alternating with Tylenol for pain and fever alternating every 4 hours. Increase fluids, avoid caffeine. Other symptomatic treatments include: -Antihistamine medication such as Benadryl at night and Zyrtec/Claritin/Malini during the day can help improve symptoms. -Use Flonase twice a day for 5 days then daily to help reduce the inflammation and dry up your sinuses. -You can also use Sudafed or Mucinex. Be sure to drink plenty of water with these medications at least 8 ounces with every dose and it is important to drink 8 to 10 glasses of water per day. Water is a natural decongestant -Eat and drink things that are easy to swallow, like tea or soup, or popsicles. -Oral rinses such as: Salt water gargles and/or may use topical anesthetic (eg. Chloraseptic spray) or lozenges to relieve dryness or throat pain). -Frequent hand washing or hand ceramic tile mechanic is one of the best ways to prevent spread of infection. -Using a vaporizer or humidifier at night will also help thin secretions and help with coughing up phlegm. -Follow up with primary care provider in 3-5 days if condition is not improving - For new or worsening symptoms go directly to the nearest ER Patient Language: Tuvaluan Prescriptions: New amoxicillin 500 mg capsule 500 mg PO BID 10 Days Qty: 20 0RF No Action Mirena 21 mcg/24 hours (8 yrs) 52 mg Intrauterine Device 1 device INTRAUTERINE ONCE Rx Instructions: as a single dose cholecalciferol (vitamin D3) 25 mcg (1,000 unit) Tablet 25 mcg PO DAILY multivit with min-folic acid [Adult One Daily Multivitamin] 0.4 mg Tablet 1 tablet PO DIRECTED buspirone 15 mg tablet 15 mg PO DAILY Follow-up/Referrals: Marilu,ARCHANA Daniel [Primary Care Provider] - 3 Days Time of Disposition: 08:51
== END 2024-12-04 08:55 | disposition home or self-care (01) ==
PROVIDERS: PCP Nurse Practitioner
DX: J03.90 Acute tonsillitis, unspecified (principal); K21.9 Gastro-esophageal reflux disease without esophagitis; E11.9 Type 2 diabetes mellitus without complications; E78.5 Hyperlipidemia, unspecified; F41.9 Anxiety disorder, unspecified; F32.A Depression, unspecified; Z98.84 Bariatric surgery status
CPT/HCPCS: 99213; G0463